=== PATIENT | female | born 2000 | race Caucasian/White ===

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

== ENCOUNTER 2022-03-31 10:15 | Emergency (ER) | payer OTHER ==
[2022-03-31 10:22] VITALS: RESP 18; TEMP 98.3; BMI 26.2
[2022-03-31] MEDS ORDERED: LACTATED RINGERS SOLUTION 1,000 ML/1,000 ML INFUS.BAG IV ONE (10:40)
[2022-03-31] MEDS ORDERED: ONDANSETRON 4 MG/2 ML VIAL IVPUSH ONE (10:41)
[2022-03-31] MEDS ORDERED: FAMOTIDINE 20 MG/50 ML IVPB 20 MG/50 ML MG IVPB ONE ×2 (10:41→11:11)
[2022-03-31] MEDS ORDERED: ONDANSETRON 4 MG/2 ML VIAL ONE (11:11)
[2022-03-31 11:26] LABS: BASO % 0.2 % (0-2.0); EOS % 0.5 % (0-4.5); HEMATOCRIT 41.2 % (32.4-45.2); HEMOGLOBIN 13.8 GM/dL (10.7-15.3); LYMPH % 7.6 % (8-40); MCH 29.5 pg (25.7-33.7); MCHC 33.4 g/dl (32.0-36.0); MEAN CELL VOLUME 88.2 fl (80-96); MEAN PLT VOLUME 8.4 fl (7.5-11.1); MONO % 5.6 % (3.8-10.2); NEUT % 86.1 % (42.8-82.8); PLATELET COUNT 232 10^3/uL (134-434); RBC 4.67 M/mm3 (3.60-5.2); RDW 13.5 % (11.6-15.6); WHITE BLOOD COUNT 8.7 K/mm3 (4.0-10.0)
[2022-03-31 11:27] LABS: EPI CELLS >36 /uL (0-25.1); HYALINE CASTS 3 /uL (0-3.1); URINE APPEARANCE CLOUDY; URINE BACTERIA 1336 /uL (0-1359); URINE BILIRUBIN NEGATIVE (NEGATIVE); URINE COLOR YELLOW; URINE GLUCOSE (UA) NEGATIVE (NEGATIVE); URINE KETONE TRACE (NEGATIVE); URINE LEUK ESTERASE 3+ (NEGATIVE); URINE NITRITE NEGATIVE (NEGATIVE); URINE PROTEIN TRACE (NEGATIVE); URINE RBC 64 /uL (0-23.9); URINE WBC 206 /uL (0-25.8)
[2022-03-31 11:36] LABS: HCG,QUALITATIVE URINE Negative
[2022-03-31 11:48] LABS: CALCIUM 8.7 mg/dL (8.5-10.1)
[2022-03-31 11:49] LABS: ALBUMIN 3.6 g/dl (3.4-5.0); BLOOD UREA NITROGEN 7.8 mg/dL (7-18)
[2022-03-31 11:51] LABS: CREATININE 0.7 mg/dL (0.55-1.3)
[2022-03-31] MEDS ORDERED: POTASSIUM CHLORIDE TABS 20 MEQ TABLET.ER (FP) PO ONE (11:52)
[2022-03-31 11:53] LABS: BILIRUBIN,TOTAL 0.5 mg/dL (0.2-1)
[2022-03-31] MEDS ORDERED: POTASSIUM CHLORIDE TABS 10 MEQ TABLET.ER (FP) ONE (11:59)
[2022-03-31 13:39] VITALS: BP 130/72; PULSE 78
== END 2022-03-31 13:39 | disposition home or self-care (01) ==
LOC: JER 10:15
PROC: 3E033GC Introduction of Other Therapeutic Substance into Peripheral Vein, Percutaneous Approach (ICD-10-PCS; principal; 2022-03-31)
PROC: 3E033GC Introduction of Other Therapeutic Substance into Peripheral Vein, Percutaneous Approach (ICD-10-PCS; 2022-03-31)
PROC: 3E0337Z Introduction of Electrolytic and Water Balance Substance into Peripheral Vein, Percutaneous Approach (ICD-10-PCS; 2022-03-31)
DX: K52.9 Noninfective gastroenteritis and colitis, unspecified (principal); N30.00 Acute cystitis without hematuria
CPT/HCPCS: 36415; 80053; 81003; 83690; 84703; 85025; 87086; 99284-25

== ENCOUNTER 2023-03-01 17:36 | Emergency (ER) | payer OTHER ==
[2023-03-01 17:40] VITALS: BP 116/69; PULSE 74; RESP 18; TEMP 99.1; BMI 23.6
[2023-03-01] MEDS ORDERED: PSEUDOEPHEDRINE HCL 30 MG TABLET PO ONE (18:49)
[2023-03-01] MEDS ORDERED: PSEUDOEPHEDRINE HCL 60 MG TABLET ONE (19:08)
[2023-03-01 19:34] LABS: THROAT:GRP A STREP NOT DETECTED (NOTDETECTED)
== END 2023-03-01 20:25 | disposition home or self-care (01) ==
LOC: JERFT 17:36
DX: J02.9 Acute pharyngitis, unspecified (principal); R05.9 Cough, unspecified; R09.81 Nasal congestion; J34.89 Other specified disorders of nose and nasal sinuses; G47.01 Insomnia due to medical condition; U07.1 COVID-19
CPT/HCPCS: 0241U-QW; 87651; 99283-25

== ENCOUNTER 2023-12-02 13:41 | Emergency (ER) | payer OTHER ==
[2023-12-02 13:53] VITALS: BP 101/62; PULSE 83; RESP 18; TEMP 97.1; BMI 22.6
[2023-12-02 15:29] LABS: EPI CELLS >36 /uL (0-25.1); HYALINE CASTS 0 /uL (0-3.1); URINE APPEARANCE CLEAR; URINE BACTERIA 512 /uL (0-1359); URINE BILIRUBIN NEGATIVE (NEGATIVE); URINE COLOR YELLOW; URINE GLUCOSE (UA) NEGATIVE (NEGATIVE); URINE KETONE TRACE (NEGATIVE); URINE LEUK ESTERASE 1+ (NEGATIVE); URINE NITRITE NEGATIVE (NEGATIVE); URINE PROTEIN 1+ (NEGATIVE); URINE RBC 38 /uL (0-23.9); URINE WBC 79 /uL (0-25.8)
[2023-12-02 15:31] LABS: HCG,QUALITATIVE URINE Negative
[2023-12-02] MEDS ORDERED: NITROFURANTOIN MACROCRYSTAL 50 MG CAPSULE (FP) ONE (16:00)
[2023-12-02] MEDS: NITROFURANTOIN MONOHYD/M-CRYST 100 MG CAPSULE PO ONE (16:01)
== END 2023-12-02 16:19 | disposition home or self-care (01) ==
LOC: JER 13:41
DX: N39.0 Urinary tract infection, site not specified (principal); R19.7 Diarrhea, unspecified; R11.0 Nausea; Z20.822 Contact with and (suspected) exposure to COVID-19
CPT/HCPCS: 0241U-QW; 81003; 84703; 87086; 87651; 99283-25